=== PATIENT | female | born 1970 | race Caucasian/White ===

== ENCOUNTER 2018-06-29 19:22 | Emergency (ER) | payer BC ==
[2018-06-29] MEDS ORDERED: ACETAMINOPHEN 325 MG TABLET PO ONE (22:50)
[2018-06-29] MEDS ORDERED: PENICILLIN V POTASSIUM 500 MG TABLET PO ONE (22:51)
--- NOTE | 2018-06-29 22:58 | ER Document Report ---
HPI - HPI Patient complains to provider of: headache, finger numbness Time Seen by Provider: 06/29/18 21:42 Pain Level: 1 Context: Patient is a 48-year-old female presents to the emergency department complaining of a right sided headache started in her right jaw up into her right ear. Patient states she has had the pain for about 24 hours. Patient states she took Motrin this morning for the pain. Patient is also stating that she has tooth pain the right lower side. Patient also stating that for about a week she has noticed some numbness and tingling intermittently in her right pinky and her right ring finger. Patient states 2 days ago she then noticed the numbness and tingling in her left pinky. Patient states she usually sleeps on her stomach with her arms overhead. States recently moved and is sleeping in a different bed with different pillows. Patient denies any fall, trauma to her head, neck, back. Patient denies any history of nerve palsies, carpal tunnel, neuropathies. Patient does have a history of diabetes. States she is supposed to be on metformin but has not been taking it for at least 2 months. States she recently just got insurance again and is going to her primary care doctor the end of this month. Past medical history: Diabetes, hyperlipidemia medications: Currently none Allergies: None Past Medical History - General Information source: Patient - Social History Smoking Status: Current Every Day Smoker Family History: Reviewed & Not Pertinent Vertical Provider Document - CONSTITUTIONAL Agree With Documented VS: Yes Notes: GENERAL: Alert, interacts well. No acute distress. HEAD: Normocephalic, atraumatic. EYES: Pupils equal, round, and reactive to light. Extraocular movements intact. ENT: Oral mucosa moist, tongue midline. Obvious dental caries noted entire dentition. Tooth in question are #30, 31, 32. Patient has fillings in 231 and 32. Surrounding, is moderately erythematous with no fluctuant or indurated areas noted. Negative King's angina. Patient has no jaw swelling noted. NECK: Full range of motion. Supple. Trachea midline. LUNGS: Clear to auscultation bilaterally, no wheezes, rales, or rhonchi. No respiratory distress. HEART: Regular rate and rhythm. No murmur ABDOMEN: Soft, non-tender. Non-distended. Bowel sounds present in all 4 quadrants. EXTREMITIES: Moves all 4 extremities spontaneously. No edema, normal radial and dorsalis pedis pulses bilaterally. No cyanosis. 5 out of 5 strength all 4 extremities. Negative Tinel and Phalen sign bilaterally. Patient reports generalized intermittent numbness and tingling to the entire right pinky and medial ring finger. Patient also admits to numbness and tingling to entire left pinky. BACK: no cervical, thoracic, lumbar midline tenderness. No saddle anesthesia, normal distal neurovascular exam. NEUROLOGICAL: Alert and oriented x3. Normal speech. cranial nerves II through XII grossly intact PSYCH: Normal affect, normal mood. SKIN: Warm, dry, normal turgor. No rashes or lesions noted. Course - Re-evaluation Re-evalutation: 06/29/18 22:55 Discussed with patient headache is likely due to dental infection. Discussed use of Tylenol and penicillin. Again patient is going to have medical and dental insurance at the end of the month. Will give [facility] information just in case. Discussed likely diagnosis of ulnar nerve palsy. Discussed with patient need to follow-up with primary care provider and inevitably get an MRI of her spine. Patient denies any other neurological complaints. Denies any neck, back, lower back pain. Denies any numbness or tingling in lower extremities. Denies any urinary retention, loss of bowel or bladder. Patient also denies injury to head , neck, back. Patient does state she is sleeping in a new bed with different pillows than she typically uses. Discussed with patient at length the need to follow-up with primary care provider for her diabetes care. Patient voices understanding. Patient is non-tachycardic and mildly hypertensive at this time. Vitals reviewed, stable for discharge. - Vital Signs Vital signs: Temp Pulse Resp BP Pulse Ox 98.3 F 92 16 160/87 H 96 06/29/18 19:52 06/29/18 19:52 06/29/18 19:52 06/29/18 19:52 06/29/18 19:52 Discharge - Discharge Clinical Impression: Ulnar nerve palsy, Toothache, Dental caries Condition: Stable Disposition: HOME, SELF-CARE Instructions: [facility], Penicillin V K ([facility]), Toothache ([facility]) Additional Instructions: As we discussed you have been seen and treated in the emergency department for a toothache and possible infection. You are going to be treated with antibiotics. He has also been seen in the emergency room for an ulnar nerve palsy. This is a nerve that starts in your neck that could potentially have been pinched or is currently being pinched. You need to follow-up with your primary care provider for an MRI. Please return to the emergency room for any other concerning symptoms. Prescriptions: Penicillin V Potassium [Penicillin Vk 500 mg Tablet] 500 mg PO BID #20 tablet Forms: Elevated Blood Pressure
[2018-06-29 23:18] VITALS: BP 135/86
== END 2018-06-29 23:18 | disposition home or self-care (01) ==
LOC: ER 19:22
DX: K02.9 Dental caries, unspecified (principal); G56.20 Lesion of ulnar nerve, unspecified upper limb; K08.89 Other specified disorders of teeth and supporting structures; R51 Headache; R20.0 Anesthesia of skin; R20.2 Paresthesia of skin; E11.9 Type 2 diabetes mellitus without complications; T38.3X6A Underdosing of insulin and oral hypoglycemic [antidiabetic] drugs, initial encounter; Z91.128 Patient's intentional underdosing of medication regimen for other reason; Z91.14 Patient's other noncompliance with medication regimen; F17.200 Nicotine dependence, unspecified, uncomplicated
CPT/HCPCS: 99283